=== PATIENT | female | born 1970 | race American Indian/Alaskan Native ===

== ENCOUNTER 2017-07-31 12:32 | Emergency (ER) | payer BC, OTHER ==
[2017-07-31] MEDS: DUONEB *Not for PRN Use IH ONE (13:03)
[2017-07-31 13:16] LABS: Hemoglobin 11.4 gm/dl (10.1-14.3); Mean Corpuscular HGB Conc 31 % (30-34); Mean Corpuscular Volume 75 fl (79-97); Platelet Count 375 K/mm3 (140-440); Red Blood Count 4.96 M/mm3 (3.65-5.03); Red Cell Distribution Width 18.4 % (13.2-15.2); White Blood Count 14.7 K/mm3 (4.5-11.0)
[2017-07-31 13:23] LABS: Mean Corpuscular Hemoglobin 23 pg (28-32)
[2017-07-31 13:34] LABS: Anion Gap 17 mmol/L; BUN/Creatinine Ratio 9; Blood Urea Nitrogen 6 mg/dL (7-17); Calcium 9.4 mg/dL (8.4-10.2); Carbon Dioxide 27 mmol/L (22-30); Chloride 98.2 mmol/L (98-107); Glucose 167 mg/dL (65-100); Potassium 3.8 mmol/L (3.6-5.0); Sodium 138 mmol/L (137-145)
--- NOTE | 2017-07-31 14:18 | XRay Report ---
Chest 2 views: History: Productive cough. Findings: Cardiomegaly. Trachea midline. No consolidation, pneumothorax or pleural effusion. Impression: No acute cardiopulmonary findings.
[2017-07-31 14:19] LABS: Anisocytosis 1+; Blastocytes % (Manual) 0 %; Eosinophils % (Manual) 0 % (0.0-4.3); Hypochromasia 3+; Large Platelets Few
[2017-07-31 14:20] LABS: Diff Status Complete; Platelet Estimate Cons
[2017-07-31 16:06] VITALS: BP 150/99
--- NOTE | 2017-07-31 17:48 | Emergency Department Report ---
ED General Adult HPI - General Chief complaint: Dyspnea/Respdistress Stated complaint: WHEEZING Time Seen by Provider: 07/31/17 17:35 Source: patient, RN notes reviewed, old records reviewed Mode of arrival: Ambulatory Limitations: No Limitations - History of Present Illness Initial comments: This is a 46-year-old female, the patient is previously unknown to this provider. Patient has a past medical history of tobacco consumption, patient has been smoking cigarettes since she was 13, smokes a pack and a half per day, also reports a history of hypertension. Patient seen at [facility], July 25 for cough, wheezing, chest tightness and shortness of breath. Patient's had a CT scan of the chest which demonstrated no pulmonary embolus, but "patchy infiltrates in the upper lungs bilaterally." The patient was instructed that she had pneumonia, and was discharged with antibiotics. She presents to the ER today with cough, wheezing, chest tightness , which haven't present since July 25. There is no leg pain, there is no leg swelling, no recent trips greater than 4 hours, and no recent hospitalizations. She has persistent anterior chest wall tightness, which does not radiate to the back, arms and neck, there is no vomiting or diaphoresis. Her main complaint is that her cough is still there, although she thinks it is somewhat improved. She also describes bilateral ear discomfort, and throat pain from coughing, with no tinnitus, and no decrease in auditory acuity. This provider obtain the medical records from the other hospital, and personally reviewed the patient's CT scan results. -: Gradual, year(s) Location: mouth, chest Severity scale (0 -10): 10 Quality: aching Consistency: intermittent Improves with: rest Worsens with: medication Associated Symptoms: chest pain, cough - Related Data Home Medications Medication Instructions Recorded Confirmed Last Taken Amlodipine Besylate [Norvasc] 10 mg PO DAILY 12/19/15 07/31/17 12/18/15 10 MG Sertraline HCl [Zoloft] 250 mg PO DAILY 12/19/15 07/31/17 12/18/15 100 MG Previous Rx's Medication Instructions Recorded Last Taken Type Albuterol Sulfate [Proair 90 mcg IH Q4HR PRN #2 aer.[email or web address] 07/31/17 Unknown Rx Respiclick] Benzonatate [Tessalon Perles] 100 mg PO Q8HR PRN #30 capsule 07/31/17 Unknown Rx Fluticasone [Flonase] 1 spray NS QDAY #1 bottle 07/31/17 Unknown Rx Ibuprofen [Motrin] 600 mg PO Q8H PRN #30 tablet 07/31/17 Unknown Rx Ipratropium [place] [Atrovent Hfa] 12.9 gm IH Q4HR #2 hfa.aer.ad 07/31/17 Unknown Rx Nicotine [Nicotine Patch] 1 each TD QDAY #90 patch.[email or web address] 07/31/17 Unknown Rx cloNIDine [Catapres] 0.2 mg PO BID #60 tablet 07/31/17 Unknown Rx Allergies Allergy/AdvReac Type Severity Reaction Status Date / Time EVELYN Inhibitors Allergy Angioedema Verified 08/18/14 00:37 ED Review of Systems ROS: Stated complaint: WHEEZING Other details as noted in HPI Constitutional: denies: fever Eyes: denies: vision change ENT: throat pain, congestion Respiratory: cough, shortness of breath, wheezing Cardiovascular: chest pain Gastrointestinal: abdominal pain. denies: vomiting Genitourinary: abnormal menses Musculoskeletal: arthralgia, myalgia Skin: denies: lesions Neurological: denies: weakness ED Past Medical Hx - Past Medical History Previous Medical History?: Yes Hx Hypertension: Yes Hx Diabetes: Yes Hx Psychiatric Treatment: Yes (bipolar, depression, anxiety) - Surgical History Past Surgical History?: Yes Additional Surgical History: Tubaligation, oral surgery - Social History Smoking Status: Current Every Day Smoker (1 pack per day) Substance Use Type: None (denies illicit drug use) - Medications Home Medications: Home Medications Medication Instructions Recorded Confirmed Last Taken Type Amlodipine Besylate [Norvasc] 10 mg PO DAILY 12/19/15 07/31/17 12/18/15 History 10 MG Sertraline HCl [Zoloft] 250 mg PO DAILY 12/19/15 07/31/17 12/18/15 History 100 MG Albuterol Sulfate [Proair 90 mcg IH Q4HR PRN #2 aer.pow.ba 07/31/17 Unknown Rx Respiclick] Benzonatate [Tessalon Perles] 100 mg PO Q8HR PRN #30 capsule 07/31/17 Unknown Rx Fluticasone [Flonase] 1 spray NS QDAY #1 bottle 07/31/17 Unknown Rx Ibuprofen [Motrin] 600 mg PO Q8H PRN #30 tablet 07/31/17 Unknown Rx Ipratropium [place] [Atrovent Hfa] 12.9 gm IH Q4HR #2 hfa.aer.ad 07/31/17 Unknown Rx Nicotine [Nicotine Patch] 1 each TD QDAY #90 patch.[email or web address] 07/31/17 Unknown Rx cloNIDine [Catapres] 0.2 mg PO BID #60 tablet 07/31/17 Unknown Rx ED Physical Exam - General Limitations: No Limitations General appearance: alert, in no apparent distress - Head Head exam: Present: atraumatic, normocephalic - Eye Eye exam: Present: normal appearance, PERRL, EOMI. Absent: nystagmus - ENT ENT exam: Present: normal exam, normal orophraynx, mucous membranes moist, TM's normal bilaterally, normal external ear exam - Neck Neck exam: Present: normal inspection, full ROM. Absent: tenderness, meningismus - Respiratory Respiratory exam: Present: normal lung sounds bilaterally, chest wall tenderness. Absent: respiratory distress, wheezes, rales, rhonchi, stridor - Cardiovascular Cardiovascular Exam: Present: regular rate, normal rhythm, normal heart sounds. Absent: bradycardia, tachycardia, irregular rhythm, systolic murmur, diastolic murmur, rubs, gallop - GI/Abdominal GI/Abdominal exam: Present: soft, normal bowel sounds. Absent: distended, tenderness, guarding, rebound, rigid, pulsatile mass - Extremities Exam Extremities exam: Present: normal inspection, full ROM, normal capillary refill. Absent: tenderness, pedal edema, joint swelling, calf tenderness - Back Exam Back exam: Present: normal inspection, full ROM. Absent: tenderness, CVA tenderness (R), CVA tenderness (L), muscle spasm, paraspinal tenderness, vertebral tenderness - Neurological Exam Neurological exam: Present: alert, oriented X3, normal gait, other (Extraocular movements intact. Tongue midline. No facial droop. Facial sensation intact to light touch in the V1, V2, V3 distribution bilaterally. 5 and 5 strength in 4 extremities.. Sensation is intact to light touch in 4 extremities.). Absent : motor sensory deficit - Psychiatric Psychiatric exam: Present: normal affect, normal mood - Skin Skin exam: Present: warm, dry, intact, normal color. Absent: rash ED Course Vital Signs 07/31/17 07/31/17 07/31/17 12:35 13:04 13:09 Temperature 98.1 F Pulse Rate 120 H Pulse Rate [ 115 H 118 H Bilateral Upper Lobe] Respiratory 20 Rate Respiratory 20 20 Rate [Bilateral Upper Lobe] Blood Pressure 170/96 Blood Pressure [Left] O2 Sat by Pulse 98 Oximetry 07/31/17 07/31/17 07/31/17 16:05 17:58 18:10 Temperature 98.9 F Pulse Rate 88 Pulse Rate [ Bilateral Upper Lobe] Respiratory 18 18 18 Rate Respiratory Rate [Bilateral Upper Lobe] Blood Pressure Blood Pressure 150/99 [Left] O2 Sat by Pulse 99 99 Oximetry - Reevaluation(s) Reevaluation #1: 07/31/17 20:06 Low risk by JOHN score, low risk by heart score, troponin negative 1, symptoms present for days, almost a week, as per the [employer] clinical policy, myocardial infarction may be excluded with once of troponins, if symptoms have been present for greater than 8 hours. The patient reports that she is not . The patient did also complain of her typical endometriosis pain, which is going on now, and also requested pain medication for that as well. Diminished soft and benign, with no rebound, guarding or peritoneal signs, patient observed in the ER for a prolonged period of time without clinical decompensation. I see no reason to obtain advanced imaging at this time. 08/01/17 01:36 08/01/17 01:36 ED Medical Decision Making - Lab Data Result diagrams: 07/31/17 12:58 07/31/17 12:58 Vital Signs 07/31/17 07/31/17 07/31/17 12:35 13:04 13:09 Temperature 98.1 F Pulse Rate 120 H Pulse Rate [ 115 H 118 H Bilateral Upper Lobe] Respiratory 20 Rate Respiratory 20 20 Rate [Bilateral Upper Lobe] Blood Pressure 170/96 Blood Pressure [Left] O2 Sat by Pulse 98 Oximetry 07/31/17 07/31/17 16:05 17:58 Temperature 98.9 F Pulse Rate 88 Pulse Rate [ Bilateral Upper Lobe] Respiratory 18 18 Rate Respiratory Rate [Bilateral Upper Lobe] Blood Pressure Blood Pressure 150/99 [Left] O2 Sat by Pulse 99 Oximetry Lab Results 07/31/17 07/31/17 07/31/17 Range/Units 12:58 12:58 12:58 WBC 14.7 H (4.5-11.0) K/mm3 RBC 4.96 (3.65-5.03) M/mm3 Hgb 11.4 (10.1-14.3) gm/dl Hct 37.0 (30.3-42.9) % MCV 75 L (79-97) fl MCH 23 L (28-32) pg MCHC 31 (30-34) % RDW 18.4 H (13.2-15.2) % Plt Count 375 (140-440) K/mm3 Lymph # Shank Archer Add Manual Diff Complete Total Counted 100 Seg Neuts % (Manual) 50.0 (40.0-70.0) % Band Neutrophils % 0 % Lymphocytes % (Manual) 43.0 H (13.4-35.0) % Reactive Lymphs % (Man) 0 % Monocytes % (Manual) 6.0 (0.0-7.3) % Eosinophils % (Manual) 0 (0.0-4.3) % Basophils % (Manual) 1.0 (0.0-1.8) % Metamyelocytes % 0 % Myelocytes % 0 % Promyelocytes % 0 % Blast Cells % 0 % Nucleated RBC % Not Reportable Seg Neutrophils # Man 7.4 (1.8-7.7) K/mm3 Band Neutrophils # 0.0 K/mm3 Lymphocytes # (Manual) 6.3 H (1.2-5.4) K/mm3 Abs React Lymphs (Man) 0.0 K/mm3 Monocytes # (Manual) 0.9 H (0.0-0.8) K/mm3 Eosinophils # (Manual) 0.0 (0.0-0.4) K/mm3 Basophils # (Manual) 0.1 (0.0-0.1) K/mm3 Metamyelocytes # 0.0 K/mm3 Myelocytes # 0.0 K/mm3 Promyelocytes # 0.0 K/mm3 Blast Cells # 0.0 K/mm3 WBC Morphology Not Reportable Hypersegmented Neuts Not Reportable Hyposegmented Neuts Not Reportable Hypogranular Neuts Not Reportable Smudge Cells Not Reportable Toxic Granulation Not Reportable Toxic Vacuolation Not Reportable Dohle Bodies Not Reportable Pelger-Huet Anomaly Not Reportable Dary Rods Not Reportable Platelet Estimate Cons Clumped Platelets Not Reportable Plt Clumps, EDTA Not Reportable Large Platelets Few Giant Platelets Not Reportable Platelet Satelliting Not Reportable Plt Morphology Comment Not Reportable RBC Morphology Not Reportable Dimorphic RBCs Not Reportable Polychromasia Not Reportable Hypochromasia 3+ Poikilocytosis Not Reportable Anisocytosis 1+ Microcytosis Not Reportable Macrocytosis Not Reportable Spherocytes Not Reportable Pappenheimer Bodies Not Reportable Sickle Cells Not Reportable Target Cells Not Reportable Tear Drop Cells Not Reportable Ovalocytes Not Reportable Helmet Cells Not Reportable [place] Bodies Not Reportable [place] Rings Not Reportable Qian Cells Not Reportable Bite Cells Not Reportable Crenated Cell Not Reportable Elliptocytes Not Reportable Acanthocytes (Spur) Not Reportable Rouleaux Not Reportable Hemoglobin C Crystals Not Reportable Schistocytes Not Reportable Malaria parasites Not Reportable Keagan Bodies Not Reportable Hem Pathologist Commnt No Sodium 138 (137-145) mmol/L Potassium 3.8 (3.6-5.0) mmol/L Chloride 98.2 (98-107) mmol/L Carbon Dioxide 27 (22-30) mmol/L Anion Gap 17 mmol/L BUN 6 L (7-17) mg/dL Creatinine 0.7 (0.7-1.2) mg/dL Estimated GFR > 60 ml/min BUN/Creatinine Ratio 9 % Glucose 167 H (65-100) mg/dL Calcium 9.4 (8.4-10.2) mg/dL Troponin T < 0.010 (0.00-0.029) ng/mL - EKG Data -: EKG Interpreted by Me EKG shows normal: sinus rhythm, axis, intervals, QRS complexes, ST-T waves - EKG Data 07/31/17 20:03 Normal sinus, 90 bpm, normal axis, QTC 480 ms, nonspecific T-wave abdomen allergies, not morphologically consistent with STEMI, unchanged from prior EKG, which was obtained from other hospitals medical records. - Radiology Data Radiology results: report reviewed, image reviewed interpreted by me: X-ray of the chest is negative for acute disease - Medical Decision Making Differential diagnosis: Costochondritis, pharyngitis, otitis, versus pneumonia, natural history of bronchitis Assessment and plan: 46-year-old female with the expected natural history of bronchitis, especially as she is a tobacco user. No pulmonary embolus or DVT risk factors, low risk by well's criteria, had a CT scan of the chest 6 days ago which was negative for pulmonary embolus. X-ray of the chest is clear, she does have faint rhonchi, however she is saturating well. Tachycardia resolved, patient does endorse a desire to stop smoking, and will therefore be discharged with nicotine patch as follows >10 cigarettes per day and weight >45 kg Start with the highest dose nicotine patch (21 mg/day) for six weeks, followed by 14 mg/day for two weeks, and finish with 7 mg/day for two weeks. Patient was further informed that the natural history of bronchitis is to at least for 4-6 weeks, and that tobacco consumption will increase her duration of symptoms. Given the objective information at this time, I don't believe the patient requires antibiotic therapy. Critical care attestation.: If time is entered above; I have spent that time in minutes in the direct care of this critically ill patient, excluding procedure time. ED Disposition Clinical Impression: Bronchitis Disposition: [id number] TO HOME OR SELFCARE Is pt being admited?: No Does the pt Need Aspirin: No Condition: Stable Instructions: Chronic Bronchitis (ED) Additional Instructions: Take medications as directed. I recommended the patient stopped smoking cigarettes. This is most likely this single gratis contribute factor to the symptoms that the patient is experiencing. Symptoms of bronchitis typically last 4-6 weeks at the very least. Use a nicotine patch as directed: >10 cigarettes per day and weight >45 kg Start with the highest dose nicotine patch (21 mg/day) for six weeks, followed by 14 mg/day for two weeks, and finish with 7 mg/day for two weeks. Follow-up with a primary care doctor within the next month. Return to the ER right away with new pain, worsened pain, migration of pain, fevers, chills, lethargy, irritability, projectile vomiting, change in mental status, inability to tolerate feeds. [facility] is a local medical clinic, and Dr. Glover is a local primary care doctor. Prescriptions: Albuterol Sulfate [Proair Respiclick] 90 mcg IH Q4HR PRN #2 aer.pow.ba PRN Reason: Wheezing Benzonatate [Tessalon Perles] 100 mg PO Q8HR PRN #30 capsule PRN Reason: Cough cloNIDine [Catapres] 0.2 mg PO BID #60 tablet Fluticasone [Flonase] 1 spray NS QDAY #1 bottle Ibuprofen [Motrin] 600 mg PO Q8H PRN #30 tablet PRN Reason: Pain Ipratropium [place] [Atrovent Hfa] 12.9 gm IH Q4HR #2 hfa.aer.ad Nicotine [Nicotine Patch] 1 each TD QDAY #90 patch.dysq Referrals: PRIMARY CAREMD [Primary Care Provider] - 3-5 Days ROSALINDA GLOVER MD [Staff Physician] - 3-5 Days [facility] [Provider Group] - 3-5 Days Forms: AMA Form, Work/School Release Form(ED)
[2017-07-31] MEDS: LIDOCAINE VISCOUS 2% PO ONE (17:56)
[2017-07-31] MEDS: TYLENOL PO ONE (17:58)
[2017-07-31] MEDS: MOTRIN PO ONE (17:58)
== END 2017-07-31 20:20 | disposition home or self-care (01) ==
LOC: ED 12:32
DX: J40 Bronchitis, not specified as acute or chronic (principal); R07.89 Other chest pain; I10 Essential (primary) hypertension; E11.9 Type 2 diabetes mellitus without complications; F17.200 Nicotine dependence, unspecified, uncomplicated; Z88.8 Allergy status to other drugs, medicaments and biological substances
CPT/HCPCS: 36415; 71020; 80048; 84484; 85007; 85025; 93005; 93010; 94640

== ENCOUNTER 2021-02-15 11:16 | Emergency (ER) | payer SELFPAY ==
[2021-02-15 11:33] VITALS: BP 166/102
--- NOTE | 2021-02-15 11:40 | Event Note ---
ED Screening Note Date of service: 02/15/21 Time: 11:39 ED Screening Note: 50-year-old female patient with history of alcohol use and recurrent pancreatitis requiring hospitalization presents to emergency department with complaints of abdominal pain, nausea, vomiting. Patient states symptoms are consistent with prior pancreatitis flareups. General: Awake, appropriately interactive, no acute distress. Neck: Supple. Full range of motion intact. Cardiovascular: Normal peripheral perfusion. Pulmonary: No respiratory distress. Patient is speaking normally without use of accessory muscles. Skin: No apparent rashes or lesions. Neurological: No facial asymmetry. Speech is clear. Follows commands. Patient is alert and oriented. Musculoskeletal: Moves all four extremities spontaneously with normal range of motion. Psych: Cooperative. Appropriate mood and affect. I have greeted and performed a focused rapid initial assessment of this patient. A comprehensive ED assessment and evaluation of the patient, analysis of all test results, and completion of the medical decision-making process will be conducted by additional ED providers. This initial assessment/diagnostic orders/clinical plan/treatment(s) is/are subject to change based on patients health status, clinical progression and re-assessment. Further treatment and workup at subsequent clinical provider's discretion. Patient/guardian urged not to elope from the ED as their condition may be serious if not clinically assess ed and managed.
[2021-02-15 12:36] LABS: Basophils % (Auto) 0.6 % (0.0-1.8); Eosinophils % (Auto) 0.5 % (0.0-4.3); Hematocrit 40.7 % (30.3-42.9); Hemoglobin 13.8 gm/dl (10.1-14.3); Lymphocytes # (Auto) 3.4 K/mm3 (1.2-5.4); Lymphocytes % (Auto) 41.1 % (13.4-35.0); Mean Corpuscular HGB Conc 34 % (30-34); Mean Corpuscular Volume 94 fl (79-97); Monocytes # (Auto) 0.5 K/mm3 (0.0-0.8); Monocytes % (Auto) 6.4 % (0.0-7.3); Platelet Count 295 K/mm3 (140-440); Red Blood Count 4.32 M/mm3 (3.65-5.03)
[2021-02-15 12:59] LABS: Alanine Aminotransferase 12 units/L (7-56); Albumin 4.3 g/dL (3.9-5); Blood Urea Nitrogen 7 mg/dL (7-17); Calcium 9.8 mg/dL (8.4-10.2); Hemolysis Index 3
[2021-02-15 13:04] LABS: BUN/Creatinine Ratio 14
--- NOTE | 2021-02-15 20:08 | Event Note ---
Went to see patient at 8:05 PM and upon me entering the room the patient was not there. I was informed that the patient had eloped. Patient was not examined by me before eloping.
== END 2021-02-15 19:50 | disposition left against medical advice (07) ==
LOC: ED 11:16
DX: Z53.21 Procedure and treatment not carried out due to patient leaving prior to being seen by health care provider (principal)
CPT/HCPCS: 36415; 80053; 80320; 83690; 83735; 84703; 85025; G0480